=== PATIENT | female | born 1985 | race Caucasian/White ===

== ENCOUNTER 2019-02-01 15:35 | Day surgery (SDC) | payer BC ==
[2019-02-01 15:54] VITALS: BMI 26.9
[2019-02-01] MEDS ORDERED: hydrALAZINE 20 MG/ML VIAL SLOW IVP PRN (16:39)
--- NOTE | 2019-02-01 17:50 | ULT ---
EXAM: OB ultrasound COMPARISON: None HISTORY: female. Vaginal bleeding.. TECHNIQUE: Multiplanar grayscale and color Doppler images were obtained in a transabdominal ult rasound. FINDINGS: There is a single live intrauterine with heart rate of 140 bpm. The fetus is in c ephalic presentation. The placenta is fundal in location without focal abnormality. MECHELLE is 13.6 cm which is normal. The cer vix measures 3.2 cm in length. There is no evidence of placenta previa. IMPRESSION: Single live intrauterine in cephalic presentation
--- NOTE | 2019-02-02 08:06 | HP ---
PRIMARY OB: Neeraj Galindo MD CHIEF COMPLAINT: Vaginal bleeding. HISTORY OF PRESENT ILLNESS: The patient is a 33-year-old, G3, P2 female with an intrauterine at 33 weeks and a day, presenting to Labor and Delivery after experiencing some vaginal bleeding. She reports that she had a little bit of bleeding on her tissue when she wiped, had called the doctor's office, and in this process, started experiencing more bleeding and came to the emergency room for evaluation. The patient reports that she had intercourse last night. She denies any trauma or falls. She denies any recent illness with fever. She does have a head cold that she reports that she has been treating with just aggressive hydration. The patient denies cough. Denies chest pain, shortness of breath, nausea, vomiting, diarrhea, constipation, hip problems, knee problems, or muscle weakness. Denies uterine contractions. Denies vaginal change in her discharge or urinary urgency or frequency. PAST MEDICAL HISTORY: Migraines. PAST SURGICAL HISTORY: Three left knee surgeries. ALLERGIES: NO KNOWN DRUG ALLERGIES. MEDICATIONS: vitamins. SOCIAL HISTORY: Denies drug, alcohol, or tobacco use. OB LABS: HIV nonreactive. Hepatitis B surface antigen nonreactive. She is rubella immune. GC and chlamydia are negative. RPR is nonreactive. One-hour Glucola is 103. Blood type is A positive. REVIEW OF SYSTEMS: Per HPI. PHYSICAL EXAMINATION: VITAL SIGNS: Blood pressure 122/73, heart rate 94, temperature 98.2. GENERAL: She appears to be in no acute distress. She is alert, oriented, cooperative, and pleasant to interact with. HEAD: Normocephalic and atraumatic. LUNGS: Clear to auscultation bilaterally. HEART: Has regular rate and rhythm. ABDOMEN: Gravid, soft, nontender. EXTREMITIES: Nontender, nonedematous. : Vulva is without masses, lesions, or erythema. Vagina is moist. There is approximately 10 mL of dark red blood present in the vaginal vault with the cervical os appearing to be mucus stained with blood. There appears to be no lesions to explain this bleeding visible and appears to be coming from the cervix itself. On cervical exam, cervix is fingertip and thick. heart tracing baseline is in the 130s with moderate long-term variability positive 15 x 15 accelerations. Tocometer is free of contractions, has some irritability, not felt by the patient. ultrasound shows fetus in the vertex presentation of the cervical length of 3.2 cm with no evidence of placenta previa and a normal-appearing fundal placenta without any obvious signs of abruption. MECHELLE of 13.6. ASSESSMENT AND PLAN: The patient is a 33-year-old female with an intrauterine at 33 weeks, presenting to Labor and Delivery with vaginal bleeding after having intercourse. There does not appear to be any signs of labor or significant abruption. Fetus has a category 1 tracing and reactive NST. The patient has been given reassurance and is being discharged to home. She has been given instructions to rest for a couple of days from exertional activities; however, can return to work and has instructions to follow up with her primary OB as scheduled. Job ID: [id number]
== END 2019-02-01 17:25 | disposition home health service (06) ==
LOC: L&D/OP 15:35
PROVIDERS: ATTEND Family Medicine
DX: O99.89 Other specified diseases and conditions complicating pregnancy, childbirth and the puerperium (principal); N93.0 Postcoital and contact bleeding; Z3A.33 33 weeks gestation of pregnancy
CPT/HCPCS: 76815; 99283

== ENCOUNTER 2019-03-11 12:13 | Inpatient (IN) | payer BC ==
[~2019-03-11 12:13] MED LIST: Bupivacaine 0.25% HCL 30 ML VIAL ONE
[2019-03-11 13:17] VITALS: BMI 28.1
[2019-03-11] MEDS ORDERED: Penicillin G Potassium 5 MILL.UNITS in Sodium Chloride 0.9% 100 ML IVPB SCH (15:07)
[2019-03-11] MEDS ORDERED: Lactated Ringer's 1,000 ML IV SCH (15:07)
[2019-03-11] MEDS ORDERED: Ondansetron PF 4 MG/2 ML Vial IVP PRN ×2 (15:07→19:08)
[2019-03-11] MEDS ORDERED: Lidocaine 1% (PF) 30 ML VIAL SC PRN (15:07)
[2019-03-11] MEDS ORDERED: Promethazine HCl 25 MG/ML VIAL IM PRN ×2 (15:07→19:08)
[2019-03-11] MEDS ORDERED: NS w/ Oxytocin 10 units 500 ML IV SCH (15:07)
[2019-03-11] MEDS ORDERED: NS / Oxytocin 40 units/1000ml 1,000 ML IV PRN (15:07)
[2019-03-11] MEDS ORDERED: Ibuprofen 800 MG TAB PO PRN (15:07)
[2019-03-11] MEDS ORDERED: Zolpidem Tartrate 5 MG TAB PO PRN (15:07)
[2019-03-11] MEDS ORDERED: HYDROcodone/Acetaminophen 5/325 mg Tablet PO PRN ×2 (15:07)
[2019-03-11] MEDS ORDERED: hydrALAZINE 20 MG/ML VIAL SLOW IVP PRN ×2 (15:07→23:44)
[2019-03-11] MEDS ORDERED: Butorphanol Tartrate 1 MG/ML VIAL SLOW IVP PRN (15:07)
[2019-03-11] MEDS ORDERED: NS w/ Oxytocin 10 units 500 ML ONE (15:18)
[2019-03-11] MEDS: Lactated Ringer's 1,000 ML IV SCH (15:42)
[2019-03-11 16:07] LABS: Hemoglobin 12.1 g/dL (12.0-16.0); Mean Corpuscular HGB CONC 34.7 g/dL (32.0-36.0); Mean Corpuscular Hemoglobin 31.4 pg (27.0-31.0); Mean Corpuscular Volume 90.6 fL (78.0-98.0); Mean Platelet Volume 10.6 fL (7.4-10.4); Platelet Count 161 thou/uL (130-400); RBC Distribution Width 11.3 % (11.5-14.5); Red Blood Cell (RBC) Count 3.87 mill/uL (4.20-5.40); White Blood Cell (WBC) Count 8.8 thou/uL (4.8-10.8)
[2019-03-11 16:37] LABS: HBSAg Index 0.17 S/CO (0-0.99); Hep B Surf Ag Non-Reactive S/CO (NonReactive); Syphilis Antibody Nonreactive (Nonreactive); Syphilis Antibody Index 0.06 S/CO (<1.00 Non-Reactive)
[2019-03-11] MEDS ORDERED: Fentanyl 4 mcg/Bup 0.1% Cadd 100 ML ONE (18:17)
[2019-03-11] MEDS ORDERED: diphenhydrAMINE 50 MG/ML VIAL IVP PRN (19:08)
[2019-03-11] MEDS ORDERED: Lactated Ringer's 500 ML IV PRN (19:08)
[2019-03-11] MEDS ORDERED: ePHEDrine/0.9% NaCl/PF SYRINGE 50 mg/10 ml SLOW IVP PRN (19:08)
[2019-03-11] MEDS ORDERED: Acetaminophen 325 MG TAB PO PRN (19:08)
[2019-03-11] MEDS ORDERED: Naloxone HCl 0.4 mg/ml Vial IVP PRN ×2 (19:08)
[2019-03-11] MEDS ORDERED: Communication Order-Pharmacy FS SCH (19:15)
[2019-03-11] MEDS ORDERED: Fentanyl 4 mcg/Bupivacaine 0.1% Cassette 100 ML EPIDURAL SCH (19:15)
[2019-03-11] MEDS: Penicillin G 2.5 MILL.units 2.5 MILL.UNITS in Premix Bag 1 BAG IVPB SCH (19:57)
[2019-03-11] MEDS: Misoprostol 200 MCG TAB ONE ×2 (21:50→21:51)
[2019-03-11] MEDS ORDERED: Lanolin Ointment 7 GM TUBE TOP PRN (23:44)
[2019-03-11] MEDS ORDERED: NS / Oxytocin 40 units/1000ml 1,000 ML IV SCH (23:44)
[2019-03-11] MEDS ORDERED: Milk Of Magnesia 30 ML UDCUP PO PRN (23:44)
[2019-03-11] MEDS ORDERED: Benzocaine-Menthol 82.5 ML CAN TOP PRN (23:44)
[2019-03-11] MEDS ORDERED: Bisacodyl 10 MG SUPP PR PRN (23:44)
[2019-03-11] MEDS ORDERED: Ibuprofen 800 MG TAB PO SCH (23:45)
[2019-03-12] MEDS: Lactated Ringer's 1,000 ML IV SCH (01:59)
[2019-03-12] MEDS: Penicillin G 2.5 MILL.units 2.5 MILL.UNITS in Premix Bag 1 BAG IVPB SCH (01:59)
[2019-03-12] MEDS: Ibuprofen 800 MG TAB PO SCH ×3 (05:46→23:41)
[2019-03-12] MEDS: Witch Hazel-Glycerin 1 EACH JAR TOP PRN ×2 (05:47→08:31)
[2019-03-12] MEDS: Docusate Calcium (SURFAK) 240 MG CAP PO SCH ×2 (08:31→21:30)
[2019-03-12] MEDS: Ferrous Sulfate 325 MG TAB PO SCH ×2 (08:33→18:50)
[2019-03-12] MEDS ORDERED: FLU VACC QS2019-20(6MOS UP)/PF 60 MCG/0.5 ML SYRINGE IM ONE (13:45)
--- NOTE | 2019-03-12 22:48 | PDOC.PP ---
Post Progress Note Post Day #: 1 Subjective: No complaints. Feeling well. well. PO intake tolerated: yes Flatus: yes Ambulation: yes Vital Signs (12 hours) Temp Pulse Resp BP Pulse Ox 03/12/19 19:17 98.4 F 63 16 119/59 L 96 03/12/19 11:15 98.9 F 55 L 12 117/58 L 97 Weight Weight 185 lb - Physical Examination General: NAD Cardiovascular: no m/r/g, RRR Respiratory: clear to auscultation bilaterally, non-labored breathing Abdominal: + bowel sounds, lochia, no distention, appropriately TTP Extremities: negative homans (B) Neurological: no gross focal deficits Psychiatric: A&Ox3 Result Diagrams: 03/11/19 15:50 Additional Labs: Post Labs Blood Type A POSITIVE 03/11/19 15:50 Hep Bs Antigen Non-Reactive S/CO (NonReactive) 03/11/19 15:50 (1) Vaginal delivery Code(s): O80 - ENCOUNTER FOR FULL-TERM UNCOMPLICATED DELIVERY Status: Acute - Assessment/Plan Routine care Doing well Home in AM
[2019-03-13] MEDS: HYDROcodone/Acetaminophen 5/325 mg Tablet PO PRN ×2 (04:32→18:34)
[2019-03-13] MEDS: Ibuprofen 800 MG TAB PO SCH ×2 (06:41→13:28)
--- NOTE | 2019-03-13 07:50 | PDOC.PP ---
Post Progress Note Post Day #: 2 Subjective: Doing well. great. Baby needs bili lights. PO intake tolerated: yes Flatus: yes Ambulation: yes Vital Signs (12 hours) Temp Pulse Resp BP Pulse Ox 03/13/19 04:00 97.8 F 52 L 16 135/74 98 03/13/19 00:00 98.2 F 60 20 113/65 96 Weight Weight 185 lb - Physical Examination General: NAD Cardiovascular: no m/r/g, RRR Respiratory: clear to auscultation bilaterally, non-labored breathing Abdominal: + bowel sounds, lochia, no distention, appropriately TTP Extremities: negative homans (B) Neurological: no gross focal deficits Psychiatric: A&Ox3 Result Diagrams: 03/11/19 15:50 Additional Labs: Post Labs Blood Type A POSITIVE 03/11/19 15:50 Hep Bs Antigen Non-Reactive S/CO (NonReactive) 03/11/19 15:50 (1) Vaginal delivery Code(s): O80 - ENCOUNTER FOR FULL-TERM UNCOMPLICATED DELIVERY Status: Acute - Assessment/Plan Routine PP care One more night for baby's phototherapy D/C in AM tomorrow
[2019-03-13 08:09] VITALS: BP 108/59; TEMP 98.4
[2019-03-13] MEDS: Docusate Calcium (SURFAK) 240 MG CAP PO SCH (08:29)
[2019-03-13] MEDS: Ferrous Sulfate 325 MG TAB PO SCH ×2 (08:29→17:13)
== END 2019-03-13 18:38 | disposition home or self-care (01) | DRG 807 ==
LOC: L&D/OP 12:13 → L&D 15:07 → 3SE 03-12 00:08
PROVIDERS: ADMIT Family Medicine; ATTEND Family Medicine
PROC: 10E0XZZ Delivery of Products of Conception, External Approach (ICD-10-PCS; principal; 2019-03-11)
DX: O99.824 Streptococcus B carrier state complicating childbirth (principal); Z37.0 Single live birth; O69.81X0 Labor and delivery complicated by cord around neck, without compression, not applicable or unspecified; Z3A.38 38 weeks gestation of pregnancy
CPT/HCPCS: 36415; 51702; 85027; 86780; 86850; 86900; 86901; 87340; 99285; J2540; J2590; J3490; S0020

== ENCOUNTER 2023-01-22 15:03 | Outpatient (CLI) | payer BC | END 2023-01-22 15:04 | disposition home or self-care (01) | LOC: BICRAD 15:03 | PROVIDERS: ATTEND Family Medicine | DX: R05.8 Other specified cough (principal); I62.03 Nontraumatic chronic subdural hemorrhage | CPT/HCPCS: 71046 ==

== ENCOUNTER 2023-01-30 09:55 | Outpatient (CLI) | payer BC | END 2023-01-30 09:56 | disposition home or self-care (01) | LOC: BICRAD 09:55 | PROVIDERS: ATTEND Family Medicine | DX: J18.9 Pneumonia, unspecified organism (principal) | CPT/HCPCS: 71046 ==

== ENCOUNTER 2023-02-04 07:48 | Outpatient (CLI) | payer BC | END 2023-02-04 07:49 | disposition home or self-care (01) | LOC: BICMAMMO 07:48 | PROVIDERS: ATTEND Student in an Organized Health Care Education/Training Program | DX: R92.8 Other abnormal and inconclusive findings on diagnostic imaging of breast (principal) | CPT/HCPCS: G0279 ==

== ENCOUNTER 2023-02-06 11:15 | Outpatient (CLI) | payer BC | END 2023-02-06 11:16 | disposition home or self-care (01) | LOC: BICRAD 11:15 | PROVIDERS: ATTEND Family Medicine | DX: J18.9 Pneumonia, unspecified organism (principal) | CPT/HCPCS: 71046 ==

== ENCOUNTER 2023-02-17 09:05 | Outpatient (CLI) | payer BC | END 2023-02-17 09:06 | disposition home or self-care (01) | LOC: BICRAD 09:05 | PROVIDERS: ATTEND Family Medicine | DX: J18.9 Pneumonia, unspecified organism (principal) | CPT/HCPCS: 71046 ==